=== PATIENT | male | born 1990 | race Caucasian/White ===

== ENCOUNTER 2021-06-17 21:55 | Emergency (ER) | payer BC, MEDICAID ==
[2021-06-17] MEDS ORDERED: Ondansetron 4 MG Tab.DIS PO ONE (22:26)
[2021-06-17 23:57] LABS: CORONAVIRUS COVID-19 NAA NEGATIVE (NEGATIVE)
== END 2021-06-18 00:10 | disposition home or self-care (01) ==
LOC: JP.ED 21:55
DX: R55 Syncope and collapse (principal); Z20.822 Contact with and (suspected) exposure to COVID-19
CPT/HCPCS: 0241U; 36415; 80053; 83605; 84484; 85025; 93005; 93010; 99283; 99285; Q0162